=== PATIENT | female | born 1980 | race African-American/Black ===

== ENCOUNTER 2018-11-26 13:16 | Emergency (ER) | payer OTHER ==
[~2018-11-26] VITALS: Ht 167.6 cm; Wt 70.9 kg
[2018-11-26 13:29] VITALS: BP 161/104; PULSE 92; RESP 20; Ht 167.6 cm; Wt 70.9 kg
[2018-11-26] MEDS ORDERED: IBUPROFEN 600 MG TAB PO ONE (16:30)
[2018-11-26] MEDS ORDERED: IBUP-1542 PO (17:16)
[2018-11-26] MEDS ORDERED: BACL10TA PO (17:17)
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
== END 2018-11-26 17:47 | disposition home or self-care (01) ==
LOC: FTE 13:16
DX: S16.1XXA Strain of muscle, fascia and tendon at neck level, initial encounter (principal); F17.210 Nicotine dependence, cigarettes, uncomplicated; V89.2XXA Person injured in unspecified motor-vehicle accident, traffic, initial encounter
CPT/HCPCS: 72040; 73130; Z7502; Z7610